=== PATIENT | female | born 1960 | race Caucasian/White ===

== ENCOUNTER 2018-06-10 08:15 | Emergency (ER) | payer BC, OTHER ==
[2018-06-10] MEDS ORDERED: NS 1,000 ML IV ONE (08:45)
--- NOTE | 2018-06-10 08:51 | EDPHY ---
H & P Stated Complaint: Woke c vertigo and nausea/chest tight. All resolved except CP. Time Seen by Provider: 06/10/18 08:39 HPI/ROS: CHIEF COMPLAINT: Vertigo, chest heaviness, diaphoresis HISTORY OF PRESENT ILLNESS: Patient is a 58-year-old female with a history of migraines and a remote history of SVT who woke up this morning with intense severe vertigo. She felt nauseous and diaphoretic and developed chest tightness. No palpitations. No shortness of breath. Her symptoms persisted for about 15 min and then resolved spontaneously. She states that something similar happened about a week ago and resolved spontaneously as well. No recent fevers or infections. No hearing changes. No vision changes. No focal weakness or deficits. No trauma. No headache. Severity: Severe but now resolved Modifying factors: Resolved with time REVIEW OF SYSTEMS: Constitutional: denies: chills, fever, recent illness, recent injury EENTM: denies: blurred vision, double vision, nose congestion Respiratory: denies: cough, shortness of breath Cardiac: See HPI denies: irregular heart rate, lightheadedness, palpitations Gastrointestinal/Abdominal: denies: abdominal pain, diarrhea, nausea, vomiting, blood streaked stools Genitourinary: denies: dysuria, frequency, hematuria, pain Musculoskeletal: denies: joint pain, muscle pain Skin: denies: lesions, rash, jaundice, bruising Neurological: See HPI denies: headache, numbness, paresthesia, tingling, weakness Hematologic/Lymphatic: denies: blood clots, easy bleeding, easy bruising Immunologic/allergic: denies: HIV/AIDS, transplant 10 systems reviewed and negative except as noted EXAM: GENERAL: Well-appearing, well-nourished and in no acute distress. HEAD: Atraumatic, normocephalic. EYES: Pupils equal round and reactive to light, extraocular movements intact, sclera anicteric, conjunctiva are normal. No nystagmus ENT: TMs normal, nares patent, oropharynx clear without exudates. Moist mucous membranes. NECK: Normal range of motion, supple without lymphadenopathy or JVD. LUNGS: Breath sounds clear to auscultation bilaterally and equal. No wheezes rales or rhonchi. HEART: Regular rate and rhythm without murmurs, rubs or gallops. ABDOMEN: Soft, nontender, normoactive bowel sounds. No guarding, no rebound. No masses appreciated. BACK: No CVA tenderness, no spinal tenderness, step-offs or deformities EXTREMITIES: Normal range of motion, no pitting or edema. No clubbing or cyanosis. NEUROLOGICAL: Cranial nerves II through XII grossly intact. Normal speech, normal gait. 5/5 strength, normal movement in all extremities, normal sensation , normal reflexes, no nystatin miss, normal test of skew, no saccade with head impulse testing but currently asymptomatic. PSYCH: Normal mood, normal affect. SKIN: Warm, dry, normal turgor, no visible rashes or lesions. Source: Patient, Family Exam Limitations: No limitations - Personal History Current Tetanus/Diphtheria Vaccine: Yes - Medical/Surgical History Hx Asthma: No Hx Chronic Respiratory Disease: No Hx Diabetes: No Hx Cardiac Disease: No Hx Renal Disease: No Hx Cirrhosis: No Hx Alcoholism: No Hx HIV/AIDS: No Hx Splenectomy or Spleen Trauma: No Other PMH: migraines, Cholycystectomy, hysterectomy, SVT - Family History Significant Family History: No pertinent family hx - Social History Smoking Status: Never smoked Alcohol Use: None Constitutional: Initial Vital Signs Temperature (C) 36.8 C 06/10/18 08:25 Heart Rate 89 06/10/18 08:25 Respiratory Rate 16 06/10/18 08:25 Blood Pressure 138/81 H 06/10/18 08:25 O2 Sat (%) 100 06/10/18 08:25 O2 Delivery Mode Room Air Allergies/Adverse Reactions: No Known Allergies Allergy (Unverified 06/10/18 08:25) Home Medications: Medication Instructions Recorded Meclizine HCl [Meclizine HCl 25 mg 25 mg PO BID PRN #30 tab 06/10/18 (RX,OTC)] Medical Decision Making - Diagnostics EKG Interpretation: An EKG obtained and was read and documented in trace view. Please see trace view for full reading and report. Ectopic atrial rhythm, no acute ischemic changes Imaging Results: Imaging Impressions Chest X-Ray 06/10/18 08:46 Impression: Negative chest. Imaging: Discussed imaging studies w/ call center dispatcher Radiologist ED Course/Re-evaluation: 9 a.m. The patient is feeling much better. She is slightly nauseous however. Will treat with Zofran. 945. The patient is feeling completely better. She is able to ambulate without difficulty. No more vertigo. No chest pain or shortness of breath or palpitations since she got here. Her troponin is reassuring. Engaged in shared decision making. She declines repeat troponin. Will treat with meclizine and have her follow up with ENT. Discussed reviewed images of benign positional vertigo as well as Evy maneuver. Differential Diagnosis: Partial list of the Differential diagnosis considered include but were not limited to; benign positional vertigo, anxiety, CVA, dissection and although unlikely based on the history and physical exam, I also considered acute coronary disease, arrhythmia, trauma, infection. I discussed these differential diagnoses and the plan with the patient as well as the usual and expected course. The patient understands that the diagnosis is provisional and that in medicine we are not always correct and that further workup is often warranted. Usual and customary warnings were given. All of the patient's questions were answered. The patient was instructed to return to the emergency department should the symptoms at all worsen or return, otherwise to followup with the physician as we discussed. - Data Points Laboratory Results: Laboratory Results 06/10/18 08:38 06/10/18 08:38 06/10/18 06/10/18 06/10/18 08:40 08:38 08:38 WBC 6.94 10^3/uL 10^3/uL (3.80-9.50) RBC 5.45 10^6/uL H 10^6/uL (4.18-5.33) Hgb 15.9 g/dL g/dL (12.6-16.3) Hct 47.9 % H % (38.0-47.0) MCV 87.9 fL fL (81.5-99.8) MCH 29.2 pg pg (27.9-34.1) MCHC 33.2 g/dL g/dL (32.4-36.7) RDW 12.5 % % (11.5-15.2) Plt Count 350 10^3/uL 10^3/uL (150-400) MPV 9.6 fL fL (8.7-11.7) Neut % (Auto) 68.7 % % (39.3-74.2) Lymph % (Auto) 23.2 % % (15.0-45.0) [place] % (Auto) 5.5 % % (4.5-13.0) Eos % (Auto) 1.2 % % (0.6-7.6) Baso % (Auto) 1.3 % % (0.3-1.7) Nucleat RBC Rel Count 0.0 % % (0.0-0.2) Absolute Neuts (auto) 4.77 10^3/uL 10^3/uL (1.70-6.50) Absolute Lymphs (auto) 1.61 10^3/uL 10^3/uL (1.00-3.00) Absolute Monos (auto) 0.38 10^3/uL 10^3/uL (0.30-0.80) Absolute Eos (auto) 0.08 10^3/uL 10^3/uL (0.03-0.40) Absolute Basos (auto) 0.09 10^3/uL 10^3/uL (0.02-0.10) Absolute Nucleated RBC 0.00 10^3/uL 10^3/uL (0-0.01) Immature Gran % 0.1 % % (0.0-1.1) Immature Gran # 0.01 10^3/uL 10^3/uL (0.00-0.10) Sodium 137 mEq/L mEq/L (135-145) Potassium 3.9 mEq/L mEq/L (3.5-5.2) Chloride 102 mEq/L mEq/L (97-110) Carbon Dioxide 23 mEq/l mEq/l (22-31) Anion Gap 12 mEq/L mEq/L (6-14) BUN 17 mg/dL mg/dL (7-23) Creatinine 0.8 mg/dL mg/dL (0.6-1.0) Estimated GFR > 60 Glucose 106 mg/dL H mg/dL (70-100) Calcium 10.2 mg/dL mg/dL (8.5-10.4) POC Troponin I 0.00 ng/mL ng/mL (0.00-0.08) Medications Given: Discontinued Medications Sodium Chloride (Ns) 1,000 mls @ 0 mls/hr IV EDNOW ONE; Wide Open PRN Reason: Protocol Stop: 06/10/18 08:46 Last Admin: 06/10/18 08:56 Dose: 1,000 mls Meclizine HCl (Meclizine Hcl) 25 mg PO EDNOW ONE Stop: 06/10/18 09:45 Last Admin: 06/10/18 09:49 Dose: 25 mg Ondansetron HCl (Zofran) 4 mg IVP EDNOW ONE Stop: 06/10/18 09:10 Last Admin: 06/10/18 09:11 Dose: 4 mg Point of Care Test Results: Chemistry 06/10/18 08:40 POC Troponin I 0.00 ng/mL ng/mL (0.00-0.08) Departure - Departure Disposition: Home, Routine, Self-Care Clinical Impression: Benign paroxysmal positional vertigo Qualifiers: Laterality: unspecified laterality Qualified Code(s): H81.10 - Benign paroxysmal vertigo, unspecified ear Condition: Fair Instructions: Benign Paroxysmal Positional Vertigo (ED) Additional Instructions: Take the medication as discussed. Use the Evy maneuver as needed and as discussed. Referrals: [facility] PLATA [Other] - As per Instructions Radha Wong PA [Physician [facility]] - 2-3 days, if not improved Prescriptions: Meclizine HCl [Meclizine HCl 25 mg (RX,OTC)] 25 mg PO BID PRN #30 tab PRN Reason: Vertigo
[2018-06-10 08:56] LABS: PLATELET COUNT 350 10^3/uL (150-400)
--- NOTE | 2018-06-10 08:56 | CPEKG ---
Test Reason : OPEN Blood Pressure : / mmHG Vent. Rate : 082 BPM Atrial Rate : 081 BPM P-R Int : 111 ms QRS Dur : 083 ms QT Int : 488 ms P-R-T Axes : 259 005 -53 degrees QTc Int : 570 ms Sinus or ectopic atrial rhythm Confirmed by John Wright ([id number]) on 06/10/2018 8:56:05 AM Referred By: John Wright Confirmed By:John Wright
[2018-06-10] MEDS ORDERED: ONDANSETRON 4 MG/2 ML VIAL IVP ONE (09:09)
[2018-06-10] MEDS ORDERED: MECLIZINE HCL 25 MG TAB PO ONE (09:44)
[2018-06-10 10:26] VITALS: BP 131/81
== END 2018-06-10 10:35 | disposition home or self-care (01) ==
DX: H81.10 Benign paroxysmal vertigo, unspecified ear (principal); E86.9 Volume depletion, unspecified
CPT/HCPCS: 84484-ER; 96374; J2405